=== PATIENT | female | born 1945 | race Caucasian/White ===

== ENCOUNTER 2016-11-30 18:42 | Observation (INO) | payer OTHER ==
[~2016-11-30] VITALS: Ht 160 cm; Wt 82.5 kg
[~2016-11-30 18:42] MED LIST: AMBIEN5 M1 PO; ASPIR 8181 M1 PO; COZAAR50 MG PO; DENAVIR TP; DESYREL100 MG PO; FLOVENT DISKUS1 DIS2 IH; Flagyl PO; GLIPIZIDE ER2.5 M1 PO; Glucophage PO; LOPRESSOR25 MG PO; Lactinex,Floranex PO; Lopressor PO; PAXIL20 MG PO; PLAVIX75 MG PO; PRILOSEC20 MG PO; SIMVASTATIN80 M1 PO; VALACYCLOVIR1000 MG PO; ValTRex PO
[2016-11-30 19:41] LABS: HEMATOCRIT 47.5 % (36.0-46.0); MCH 30.1 PG (29.0-34.0); MCHC 34.1 G/DL (30.0-36.0); MCV 88.1 FL (83-99); MEAN PLAT.VOLUME 10.3 uM^3 (9.5-12.4); PLATELET COUNT 198 K/uL (156-360); RBC DIS.WIDTH-CV 12.6 % (11.8-14.6); RBC DIS.WIDTH-SD 40.4 % (39-53); RED BLOOD COUNT 5.39 M/uL (3.80-5.20); WHITE BLOOD COUNT 9.2 K/uL (4.1-10.2)
[2016-11-30 19:55] LABS: CHLORIDE 105 mEq/L (99-109); INTER. NORMALIZED RATIO 1.1; PROTHROMBIN TIME 11.2 (9.2-11.2); PTT 26.4 (25-32)
[2016-11-30 19:56] LABS: POTASSIUM 4.5 mEq/L (3.7-5.4); SODIUM 138 mEq/L (136-147)
[2016-11-30 19:57] LABS: GLUCOSE 323 mg/dL (70-99)
[2016-11-30 19:59] LABS: ANION GAP 12 MEQ/L (2-14)
[2016-11-30 20:01] LABS: GFR ESTIMATE (CALCULATED) > 59 mL/min/
[2016-11-30 20:02] LABS: UREA NITROGEN (BUN) 17 mg/dL (9-23)
[2016-11-30 20:07] LABS: TROP-I INTERPRETATION NEGATIVE; TROPONIN-I < 0.01 ng/mL (0.0-0.30)
[2016-11-30 20:35] LABS: CARBON DIOXIDE (BICARBONATE) 30.7 MEQ/L (20-31)
[2016-11-30 21:40] LABS: ADD MIUA? NO; BILIRUBIN NEGATIVE; BLOOD NEGATIVE; COLOR YELLOW ((YELLOW)); GLUCOSE (STRIP) >=1000; KETONES TRACE; LEUKOCYTES NEGATIVE; NITRITE NEGATIVE; PH, URINE 5.5 (5-8); PROTEIN (STRIP) NEGATIVE; SPECIFIC GRAVITY 1.033 (1.000-1.030); UROBILINOGEN 0.2 MG/DL (0.2-1.0)
[2016-11-30 22:20] LABS: POINT-OF-CARE METER ID UU14100415
[2016-11-30 22:53] LABS: ERTH.SED.RATE 28 MM/HR (0-30)
[2016-12-01] MEDS ORDERED: LOPRESSOR25 MG PO (00:05)
[2016-12-01] MEDS ORDERED: GLUCOPHAGE1000 MG PO (00:06)
[2016-12-01] MEDS ORDERED: GLIPIZIDE10 MG PO (00:07)
[2016-12-01] MEDS ORDERED: FLONASE16 G1 BOTH NARES (00:07)
[2016-12-01] MEDS ORDERED: DIABETES HEALT1 EAC1 PO (00:07)
[2016-12-01] MEDS ORDERED: BENADRYL25 MG PO (00:08)
[2016-12-01 03:21] VITALS: BP 181/87
[2016-12-01 07:24] LABS: TROP-I INTERPRETATION NEGATIVE; TROPONIN-I < 0.01 ng/mL (0.0-0.30)
[2016-12-01 08:38] LABS: POINT-OF-CARE METER ID UU13113700
[2016-12-01 09:08] VITALS: BP 160/75
[2016-12-01 12:38] LABS: POINT-OF-CARE METER ID UU13113831
[2016-12-01 12:47] VITALS: BP 174/86
[2016-12-01 12:56] LABS: TROP-I INTERPRETATION NEGATIVE; TROPONIN-I < 0.01 ng/mL (0.0-0.30)
[2016-12-01] MEDS ORDERED: NORVASC2.5 MG PO (14:19)
[2016-12-01 17:02] VITALS: BP 146/78
== END 2016-12-01 19:00 | disposition home or self-care (01) ==
LOC: EME 18:42 → 5WEST 12-01 01:56 → EDOF 12-01 01:56 → 5WEST 12-01 03:07
PROVIDERS: Emergency Medicine; Internal Medicine; Nurse Practitioner Adult Health; Physician Assistant
DX: R07.89 Other chest pain (principal); M79.622 Pain in left upper arm; E11.9 Type 2 diabetes mellitus without complications; I25.10 Atherosclerotic heart disease of native coronary artery without angina pectoris; R20.0 Anesthesia of skin; Z95.5 Presence of coronary angioplasty implant and graft; I25.2 Old myocardial infarction; K21.9 Gastro-esophageal reflux disease without esophagitis; J44.9 Chronic obstructive pulmonary disease, unspecified; Z79.82 Long term (current) use of aspirin; Z79.51 Long term (current) use of inhaled steroids; Z79.899 Other long term (current) drug therapy; G47.30 Sleep apnea, unspecified; H57.11 Ocular pain, right eye; F41.9 Anxiety disorder, unspecified; F32.9 Major depressive disorder, single episode, unspecified; Z87.891 Personal history of nicotine dependence
CPT/HCPCS: 70450; 71020; 80048; 81003; 82009; 82803; 82948; 84484; 85027; 85610; 85651; 85730; 87493; 93005; 99281; 99285; G0378; J1644; J1815; J7030

== ENCOUNTER 2017-07-19 13:19 | Emergency (ER) | payer OTHER ==
[~2017-07-19] VITALS: Ht 162.6 cm; Wt 83.2 kg
[~2017-07-19 13:19] MED LIST changes: +BENADRYL25 MG PO; +DIABETES HEALT1 EAC1 PO; +FLONASE16 G1 BOTH NARES; +GLIPIZIDE10 MG PO; +GLUCOPHAGE1000 MG PO; +NORVASC2.5 MG PO
[2017-07-19 13:26] VITALS: BP 183/103
== END 2017-07-19 14:15 | disposition left against medical advice (07) ==
LOC: EME 13:19
DX: R68.84 Jaw pain (principal); Z53.21 Procedure and treatment not carried out due to patient leaving prior to being seen by health care provider